=== PATIENT | male | born 1930 | race Caucasian/White ===

== ENCOUNTER 2016-09-08 21:10 | Inpatient (IN) | payer MEDICARE, BC ==
[~2016-09-08] VITALS: Ht 177.8 cm; Wt 67.3 kg
--- NOTE | 2016-09-08 21:20 | NUR ---
ADMITTED TO ROOM 1127 FROM [facility] ED. VIA AMBULANCE WITH 2 EMT'S. DX: INCREASED HALLUCINATIONS AND AGGRESION. 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 PRN MEDICATION OF ATIVAN 1 MG AND HALDOL 5 MG IM GIVEN AT [facility] ED. PRIOR TO ADMISSION. NO AGGRESSION TONIGHT DUE TO PRN MED. WILL CONTINUE TO MONITOR AND ASSESS FOR ANY CHANGES.
[2016-09-09 08:16] LABS: THYROID STIMULATING HORMONE 2.12 uIU/mL (0.36-3.74); VALPROIC ACID (DEPAKOTE) 41.5 ug/mL (50.0-100.0)
[2016-09-09 08:23] VITALS: BP 146/81
[2016-09-09] MEDS ORDERED: ULTRAM50 MG PO (08:56)
[2016-09-09] MEDS ORDERED: DEPAKOTE250 MG PO (09:08)
[2016-09-09] MEDS ORDERED: KLONOPIN0.5 MG PO (09:09)
[2016-09-09] MEDS ORDERED: XARELTO20 MG (09:09)
[2016-09-09] MEDS ORDERED: BAYER CHEWABLE81 MG (09:10)
[2016-09-09] MEDS ORDERED: FLOMAX0.4 MG PO (09:11)
[2016-09-09] MEDS ORDERED: MIRALAX17 GM PO (09:11)
[2016-09-09] MEDS ORDERED: PROSCAR5 MG PO (09:12)
[2016-09-09] MEDS ORDERED: BENICAR5 MG PO (09:13)
[2016-09-09] MEDS ORDERED: LIPITOR40 MG PO (09:14)
[2016-09-09] MEDS ORDERED: GLUCOSAMINE HC500 MG PO (09:15)
[2016-09-09] MEDS ORDERED: SINEMET 25-1001 EACH PO (09:18)
[2016-09-09 09:59] VITALS: BP 146/81
--- NOTE | 2016-09-09 14:00 | NUR ---
ALERT AND ORIENTED TO SELF ONLY, SITTING IN MICHELLE CHAIR, YELLING OUT AND TALKING TO SELF CONSTANTLY. TRASHES ABOUT IN MICHELLE CHAIR KICKING SOCKS OFF AND THROWING LEGS OVER SIDE OF CHAIR. NO EVIDENCE OF REORIENTATION. DOES THIS INTERMITTENTLY THROUGHOUT THE DAY. NO AGGRESSION. COMPLIANT WITH MEDICATIONS AND ENCOURAGEMENT OF FLUIDS. SAFETY MAINTAINED. CONTINUE PLAN OF CARE.
--- NOTE | 2016-09-09 14:26 | NUR ---
PT WAS GIVEN AN ATIVAN 0.5MG AT 1:45PM DUE TO HIM HOLLERING "OH GOD,OH GOD." HE IS RESTING IN A RECLINER CHAIR AND IS QUIET NOW. WILL CONTINUE TO MONITOR HIM.
--- NOTE | 2016-09-09 16:00 | NUR ---
PATIENT SPOUSE HERE VISITING, ACCOMPANIED PER FRIEND. ATTMEPTED TO EXPLAIN PLAN OF CARE TO HER, SHE THINKS PATIENT IS HERE BEING TREATED FOR HIS STROKE AND DOES NOT UNDERSTAND REASON FOR PATIENT HOSPITALIZATION. SHE IS TEARFUL AND REQUIRES CONSOLING PER HER FRIEND. FRIEND STATES THIS IS VERY HARD ON HER. EXPLAINED TREATMENT PLAN IS IN PROCESS AND SHE CAN CALL FOR UPDATES AND NEW INFORMATION. UNIT ORIENTATION HANDBOOK WAS GIVEN.
[2016-09-09 17:59] VITALS: BP 146/81; BMI 21.2
[2016-09-09 19:30] VITALS: BP 101/67
--- NOTE | 2016-09-09 22:00 | NUR ---
CALM AND COOPERATIVE WITH CARE AND ASSESSMENT. SEE ASSESSMENT FLOW SHEET FOR DETAILS. DIFFICULT TO REDIRECT AT TIMES. CONTINUE POC.
--- NOTE | 2016-09-10 06:48 | PSY ---
PATIENT NAME:STEPHEN MARTINEZ MEDICAL RECORD: [id number] : 31 LOCATION:JONNATHAN Briggs ADMISSION DATE: 09/08/16 ACCOUNT: [id number] PSYCHIATRIC EVALUATION DATE OF EVALUATION: 09/09/16 Initial Psychiatric Workup IDENTIFYING DATA: This is a first psychiatric admission for this 85-year-old white male. HISTORY OF PRESENT ILLNESS: This patient was accepted on transfer from [facility]. At home, the patient had been exhibiting increasing agitation and psychosis. He had been exhibiting delusional ideation as well as periods of yelling out and mild combativeness. 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 He has a preexisting diagnosis of Parkinson's disease as well as dementia. He had recently been started on medication for his Parkinson disease as well as Depakote 250 mg twice a day. Despite these measures, the patient has continued to worsen and he is therefore admitted for medication reevaluation and stabilization of his behavior. PAST MEDICAL HISTORY: Significant for Parkinson disease as mentioned above. Also, significant for recent CVA. The patient has a previous history of hyperlipidemia and benign prostate hypertrophy. ALLERGIES: None listed. FAMILY HISTORY: Noncontributory. SOCIAL HISTORY: The patient is . He lives at home with his . He has a son who is a physician. There are no substance abuse issues. REVIEW OF SYSTEMS: Noncontributory. MENTAL STATUS: On interview, the patient is extremely confused and somewhat agitated. Mood is slightly irritable. Affect is brittle. Speech is tangential and nonfocused. Flow of thought is indicative of moderate loosening of associations. Content of thought is positive for paranoid delusional ideation. On sensorium testing, the patient is oriented only to person. There is impairment in all phases of memory. DIAGNOSTIC IMPRESSION: AXIS I: Possible vascular dementia -- rule out Parkinson's related dementia. AXIS II: No diagnosis. AXIS III: Parkinson disease, ____ recent cerebrovascular accident, hyperlipidemia. AXIS IV: Moderate. AXIS V: 36. PLAN: 1. The patient is admitted for further workup from medical and psychiatric standpoint. 2. Diet and activities as tolerated. 3. Daily supportive therapy. 4. Coordinate with family regarding aftercare. TRANSINT:[id number] Voice Confirmation ID: [id number] DOCUMENT ID: [id number] TRIXIE NAVA III, MD at 0648 CC: [id number] DICTATION DATE: 09/09/16 1433 CORRUGATED FASTENER DRIVER: 09/09/16 1726 ADM IN [place] [id number] [place] [id number]
[2016-09-10 07:00] VITALS: BP 131/87
[2016-09-10 09:23] VITALS: BP 131/87
--- NOTE | 2016-09-10 18:05 | NUR ---
PT WAS RESTING IN THE RECLINER AT THE SUPPER TABLE WHEN HE BEGAN HOLERING "HELP, HELP." HE WAS GIVEN A tRAMADOL 50MG PO AT 5:50PM. HE WAS REPOSITIONED AND HE QUIT HOLLERING. HE NOW IS ASLEEP.
--- NOTE | 2016-09-10 18:13 | NUR ---
Patient in dayroom, yells out continuously. "Help, Help" when we go to assess him or ask him whats the matter, he just yells more. He tries to twist your arm when you try to assist him. He finally quieted down and when his came to visit he started yelling again. He was aggressive with his caregiver as well, twisting her hand. Patient unable to assess orientation. Continue to monitor.
[2016-09-10 19:30] VITALS: BP 126/91
--- NOTE | 2016-09-10 21:09 | NUR ---
RECEIVED IN DINING ROOM AREA. LAYING IN RECLINING CHAIR WITH EYES CLOSED. YELLING OUT. CALM AND COOPERATIVE WITH CARE AT THIS TIME. NO SIGNS OF AGGRESSION. ENCOURAGE TO EXPRESS NEEDS BUT NOT VOICING NEEDS AT THIS TIME. CONTINUE PLAN OF CARE
[2016-09-11 07:00] VITALS: BP 183/76
[2016-09-11 09:08] LABS: VITAMIN D 25 HYDROXY 22.7 ng/mL (30.0-100.0)
--- NOTE | 2016-09-11 09:09 | PN ---
PATIENT:STEPHEN MARTINEZ MEDICAL RECORD: [id number] LOCATION:PoppyELIEAlta CervantesShavon ADMISSION DATE: 09/08/16 PROGRESS NOTE DATE OF SERVICE: 09/10/2016 SUBJECTIVE: No new complaint. OBJECTIVE: The patient continues to have episodes of agitation. He is tolerating medications reasonably well up to this point. He remains confused and very distractible. On exam, mood is anxious, affect is shallow. Speech is tangential. Content of thought positive for recent hallucinations. Sensorium unchanged. ASSESSMENT: No change in diagnosis. PLAN: 1. Maintain current medication. 2. Continue supportive therapy. TRANSINT:[id number] Voice Confirmation ID: [id number] DOCUMENT ID: [id number] TRIXIE NAVA III, MD at 0909 CC: [id number] DICTATION DATE: 09/10/162019 MILIEU MANAGER: 09/10/162051 ADM IN [facility] [address] [place] [id number]
[2016-09-11 12:13] LABS: FOLATE (FOLIC ACID) - SERUM 8.7 ng/mL (>3.0)
--- NOTE | 2016-09-11 14:27 | NUR ---
Patient in [facility]. Unable to assess orientation. Patient given medication mixed some Ensure. He is not eating even with assist. Talked with son, Dr. Cuevas of the possibility of hospice care, as recommendation from the Doctor.
--- NOTE | 2016-09-11 19:52 | NUR ---
RECEIVED IN HALLWAY SITTING OUTSIDE OF NURSES STATION IN A RECLINING CHAIR. NOT YELLING OUT THIS EVENING. CALM AND COOPERATIVE WITH CARE AND ASSESSMENTS. NO SIGNS OF AGGRESSION. REDIRECT AND REORIENT NEEDED. CONTINUES TO SIT QUIETLY IN HALLWAY. CONTINUE PLAN OF CARE
[2016-09-11 20:02] VITALS: BP 119/77
[2016-09-12 03:09] LABS: RAPID PLASMA REAGIN Non Reactive (Non Reactive)
[2016-09-12 07:00] VITALS: BP 146/105
--- NOTE | 2016-09-12 11:01 | PN ---
PATIENT:STEPHEN MARTINEZ MEDICAL RECORD: [id number] LOCATION:JONNATHAN CervantesShavon ADMISSION DATE: 09/08/16 PROGRESS NOTE DATE OF SERVICE: 09/11/2016 SUBJECTIVE: No new complaint. OBJECTIVE: The patient is continuing to show virtually no oral intake. He is sedated some at this time, but very anxious when his visits. Additional history indicates that he was not receiving his Parkinson's medications on a regular basis at home. Family appears to be interested in placement. On exam, mood is euthymic. Affect very constricted. Speech is minimal. Content of thought is negative for overt psychosis at the moment. Sensorium shows no improvement. ASSESSMENT: No change in diagnosis. PLAN: 1. Maintain current medication. 2. Coordinate with family regarding aftercare plans. TRANSINT:[id number] Voice Confirmation ID: [id number] DOCUMENT ID: [id number] TRIXIE NAVA III, MD at 1101 CC: [id number] DICTATION DATE: 09/11/16 1035 WOOL SUPPLIER: 09/11/16 1157 ADM IN [facility] [address] [place] [address]
--- NOTE | 2016-09-12 12:49 | NUR ---
ORIENTED TO PERSON ONLY. PT IS NONVERBAL DURING ASSESSMENT BUT HE DID SPEAK OUT WITHOUT CONVERSATION FROM STAFF. PT APPEARS TO BE SEEING THINGS AEB HIM REACHING OUT TO UNSEEN THINGS. SPOUSE AND SON UPDATED ON PT'S CONDITION BY DR. NAVA AND THIS NURSE. CODE STATUS ADDRESSED AND PT HAS BEEN CHANGED TO DNR PER SON WHO IS HIS POA. FAMILY APPROVES HOSPICE EVALUATION. NO AGGRESSION NOTED. PT IS VERY LETHARGIC AND DOES NOT FOLLOW DIRECTION OR CONVERSATION. STAFF HAS ATTEMPTED MULTIPLE TIMES TO GET PT TO EAT BUT WITHOUT SUCCESS. PT HOLDS FOOD IN HIS MOUTH. SWALLOW EVALUATION HAS BEEN ORDERED. HEATHER MAT AND BARRIER CREAM ALONG WITH REPOSITIONING EVERY 2 HOURS IS BEING DONE TO REDUCE RISK OF BREAKDOWN. FALL PRECAUTIONS MAINTAINED. WILL CONTINUE TO MONITOR AND CONTINUE WITH PLAN OF CARE.
[2016-09-12 19:30] VITALS: BP 143/90
--- NOTE | 2016-09-12 22:29 | NUR ---
RECEIVED IN HALLWAY OUTSIDE OF NURSES STATION. SITTING IN RECLINER WITH EYES OPEN. CALM AND COOPERATIVE WITH CARE AND ASSESSMENTS. NO SIGNS OF AGGRESSION. REDIRECT AND REORIENT NEEDED. RESTING IN BED EYES CLOSED AT THIS TIME. CONTINUE PLAN OF CARE
[2016-09-13 09:06] VITALS: BP 150/99
--- NOTE | 2016-09-13 10:23 | NUR ---
B) Rec'd pt in dining room for b'fast, alert, confused, oriented to self only, able to take meds crushed with pudding. I) Meds admin as ordered, group therapy provided with little participation due to cognitive deficit. R) Med compliant, chayo well with no s/s adverse reaction. P) Cont plan of care including medications and group therapy.
--- NOTE | 2016-09-13 10:37 | PN ---
PATIENT:STEPHEN MARTINEZ MEDICAL RECORD: [id number] LOCATION:JONNATHAN Cervantes112 ADMISSION DATE: 09/08/16 PROGRESS NOTE DATE OF SERVICE: 09/12/2016 SUBJECTIVE: No new complaint. OBJECTIVE: The patient continues to show poor responsiveness. He has not had any significant oral intake over the last 24 hours and remains sedated. Accordingly, Klonopin and Depakote have been discontinued; however, the patient has not actually had any oral medication for about [address] El attempted to test the patient, but he could not respond. We will be getting a speech evaluation regarding his poor swallowing. Conversation was held via telephone with the patient's son, Dr. Jason Martinez. He noted that in the 7 weeks that his father was home following a stroke that he had exhibited extreme sensitivity to any sedating medications. He stated for example that when Mr. Martinez was given 1 mg of Klonopin that he became somnolent for about 18 hours. He also exhibited a similar sensitivity to the benzodiazepines. This of course is comparable to the sedation that has been noted in the hospital. The patient had been ordered Klonopin 0.5 b.i.d. as well as his Depakote, but again these have not been actually administered for about a day and a half. The issue of hospice involvement was discussed with his son and he is going to look into this. Likewise, the son gave with an authorization to have the patient on a no code status. On exam, the patient is very poorly responsive. Speech is minimal. Content of thought cannot be assessed. Likewise sensorium is globally impaired. ASSESSMENT: No change in diagnosis. PLAN: 1. Medication changes as described above. Also, we will add Vistaril 25 mg up to every 8 hours on a p.r.n. basis should the patient became agitated again, p.r.n. Haldol and Ativan will also be discontinued. 2. We will get hospitalist evaluation. 3. Speech therapy evaluation. 4. The patient will be placed on a no code status per son's instruction. TRANSINT:[id number] Voice Confirmation ID: [id number] DOCUMENT ID: [id number] PROGRESS NOTE [id number] STEPHEN MARTINEZ BRANDY LOVE, TRIXIE Cline MD at 1037 CC: [id number] DICTATION DATE: 09/12/16 1211 RECORD LABEL INTERNSHIP: 09/12/16 2253 ADM IN [facility] [address] [facility]
[2016-09-13 19:30] VITALS: BP 138/89
--- NOTE | 2016-09-14 01:34 | NUR ---
B) Recieved patient in the day room , sleeping in gerichair , arrouses to name, I) monitored for falls and safety no medications this shift, NPO till next swallow study R) resting quietly in bed, P) Continue plan of care.
--- NOTE | 2016-09-14 09:22 | NUR ---
B) PATIENT IS CONFUSED ORIENTED TO SELF, KNOWS HE IS NOT HOME. SHAHRAM FROM SPEECH THERAPY IS SUPPOSED TO BE HERE IN A WHILE TO REASSESS PATIENTS SWALLOW CAPABILITY. PATIENT REMAINS NPO AND HIS LIPS ARE DRY, APPLYING GLYCERIN SWAB TO MOUTH AND LIPS, ICE CUBES TO LIPS. I) PROVIDE PRESCRIBED MEDS. R) PATIENT IS CALLING FOR STAFF TO CALL HIS . PATIENT IS COMPLIANT WITH MEDS. P) CONTINUE PLAN OF CARE.
[2016-09-14 09:28] VITALS: BP 143/93
--- NOTE | 2016-09-14 10:27 | PN ---
PATIENT:STEPHEN MARTINEZ MEDICAL RECORD: [id number] LOCATION:JONNATHAN BillyShavon ADMISSION DATE: 09/08/16 PROGRESS NOTE DATE OF SERVICE: 09/13/2016 SUBJECTIVE: No new complaint. OBJECTIVE: The patient continues to show very poor oral intake. He essentially has not had food or liquids over the last 24 hours. However, he is more alert. He speaks but his speech is nonsensical. He has undergone a swallowing evaluation and it is noted that he has severe dysphagia consistent with his Parkinson disease and dementia. He has a significant aspiration risk. Swallow evaluation raised the possibility of using a PEG tube. On exam, mood is euthymic. Affect very constricted. Speech is nonsensical. Content of thought appears to be focused only on somatic concerns. Sensorium shows no change. ASSESSMENT: No change in diagnosis. PLAN: 1. We will defer to primary care regarding nutritional status. 2. Psychotropic medications have been discontinued. 3. Continue supportive care. TRANSINT:[id number] Voice Confirmation ID: [id number] DOCUMENT ID: [id number] TRIXIE NAVA III, MD at 1027 CC: [id number] DICTATION DATE: 09/13/16 1113 COUNTY ADMINISTRATOR: 09/13/16 1653 ADM IN [place] [id number] [place] [address]
[2016-09-14 19:54] VITALS: BP 123/85
--- NOTE | 2016-09-15 06:31 | NUR ---
RECEIVED IN DINING ROOM SITTING IN RECLINER WITH EYES CLOSED. ALERT TO SELF ONLY. REMAINS QUIET AT THIS TIME. CALM AND COOPERATIVE WITH CARE AND ASSESSMENT. MEDICATION COMPLIANT. FALL PRECAUTIONS MAINTAINED. CONT POC.
--- NOTE | 2016-09-15 07:15 | NUR ---
PATIENT FOUND ON FLOOR, CHECKED BODY, RANGE OF MOTION WNL.
--- NOTE | 2016-09-15 07:35 | NUR ---
CONTACTED HOUSE SUPERVISER ON PATIENT BEING FOUND ON FLOOR, NO INJUSRIES, NO REDNESS.
--- NOTE | 2016-09-15 07:42 | NUR ---
CONTACTED DR. MARTINEZ PATIENT'S SON, LET HIM BE AWARE THAT HIS DAD WAS FOUND ON THE FLOOR, EXPLAINED THAT WE ARE NOT SURE IF HE FELL OR SLID DOWN. BODY ASSESSMENT WITH NO FINDINGS OF ANY INJURIES, ROM WNL. DR. MARTINEZ REPLIED WITH UNDERSTANDING.
[2016-09-15 09:47] VITALS: BP 152/83
[2016-09-15 13:51] VITALS: BMI 21.2
[2016-09-15 19:30] VITALS: BP 91/76
--- NOTE | 2016-09-15 19:35 | NUR ---
RAPID RESPONSE CALLED ON PATIENT BP WAS 73/38, AND NOT RESPONDING, MANUAL BP TAKEN AND NOT ABLE TO GET, STERNAL RUB PROVIDED AND NO RESPONSE. RR TEAM, APPLIED 4L/M O2 PER N/C, FAMILY NOTIFIED, DR. HERRERA NOTIFIED. BP NOW 91/67, RR TEAM RECOMMEND REVIEW HOSPICE CONSULT, CONTINUE OXYGEN AND FREQUENT OBSERVATION.
--- NOTE | 2016-09-16 03:08 | NUR ---
B) Recieved patient in the day room, MHT unable to get B/P rapid responce called, I) Patient transfered to his room, patient arroused , family and physician called, orders for IV obtained for NS at 100, R) medication compliant, fluids pushed, IV started, patient sat. improved, p) Continue plan of care.
--- NOTE | 2016-09-16 08:30 | NUR ---
B) PATIENT IS MORE ALERT AND AWAKE, HE DID BITE HIS IV TUBING IN TWO PIECES, HANGED ANOTHER BAG AND CURRENTLY IT IS INFUSING. PATIENTS O2 SAT IS 97% ON R/A HE IS TALKING, NONSENSICAL BUT HE IS TALKING AND RESPONSIVE. I) PROVIDE PRESCRIBED MEDS. R) PATIENT IS COMPLIANT WITH MEDS AND HE IS ASKING FOR WATER AND JUICE AND DRINKING WELL. P) CONTINUE POC.
[2016-09-16 11:50] VITALS: BP 137/87
--- NOTE | 2016-09-16 11:56 | PN ---
PATIENT:STEPHEN MARTINEZ MEDICAL RECORD: [id number] LOCATION:JONNATHAN CervantesShavon ADMISSION DATE: 09/08/16 PROGRESS NOTE DATE OF SERVICE: 09/15/2016 SUBJECTIVE: The patient's case was discussed with staff. He has no new complaint. OBJECTIVE: The patient is in good behavioral control, but not eating very well. He has very limited insight about his situation. ASSESSMENT: No change in diagnosis. PLAN: Current medicines and therapies have been reviewed and will be maintained. Brief supportive and educational interventions were made. The patient will be started on Megace to assist with appetite stimulation. TRANSINT:[id number] Voice Confirmation ID: [id number] DOCUMENT ID: [id number] EMY FOURNIER MD at 1156 CC: [id number] DICTATION DATE: 09/15/16 1425 EXTENSION PROFESSOR: 09/15/16 2342 ADM IN [place] [id number] [place] [id number]
--- NOTE | 2016-09-16 12:15 | NUR ---
PATIENT PULLED HIS IV OUT, HE DID RECEIVE HIS 100 ML IV NS, HE IS DRINKING AND EATING WELL.
--- NOTE | 2016-09-16 15:20 | NUR ---
RESTARTED PT IV TO TO RIGHT FOREARM AT THIS TIME, 22G ONE ATTEMPT. FLUSHED WITH 10CC OF NS AND SECURED WITH OP-SITE AND TAPE. IV FLUIDS RESTARTED. WILL CONTINUE TO MONITOR.
--- NOTE | 2016-09-16 16:40 | NUR ---
PATIENTS IS HERE AND SHE IS CRYING AND SHE IS DISTRAUGHT. SHE ASKED ME AND THE MHT ABOUT THE PATIENTS SEVERITY AND HOW FAST HE HAS GONE [place]. SHE DOES NOT UNDERSTAND. SHE WAS BEGGING HIM TO PLEASE REMEMBER HER.
--- NOTE | 2016-09-16 18:13 | NUR ---
PATIENT HAS A YELLOW METAL BAND (RING) THAT CAME OFF OF HIS FINGER. THE E.D. WAS CALLED TO COME P/U TO LOCK UP IN SAFE. THEY ARE SUPPOSED TO BE COMING SHORTLY.
[2016-09-16 19:30] VITALS: BP 91/55
--- NOTE | 2016-09-16 23:44 | NUR ---
B) Recieved patient in the day room, alert and oriented to self, confused and talking at times, patient is much improved from 24 hours ago, I) Administered perscribed medication, monitored IV site, monitored for falls and safety, R) Medication compliant, IV site patent, P) Continue plan of care, continue to monitor.
[2016-09-17 07:00] VITALS: BP 143/78
[2016-09-17 13:39] VITALS: Ht 177.8 cm; Wt 67.3 kg
--- NOTE | 2016-09-17 13:39 | NUR ---
PT IS VERY LETHARGIC BUT DOES AWAKEN WITH STIMULI. PT RFUSES TO OPEN HIS EYES BUT DOES ATTEMPT TO PUSH STAFF AWAY WHEN STAFF ATTEMPTS TO WAKEN PT. PT ATE ONLY BITES DURING LUNCH AND REFUSED ANY AT BREAKFAST. WILL CONTINUE TO ATTEMPT TO GET PT TO EAT OR DRINK. IV RUNNING AT 100 ML/HR. IV LOCATED ON RIGHT WRIST. MEDICATIONS GIVEN ORDERED. FALL PRECAUTIONS MAINTAINED. CLAIR IN PLACE. WILL CONTINUE TO MONITOR AND CONTINUE WITH PLAN OF CARE. PT IN BED SO TURNING PT EVERY 2 HOURS AND BRACING PT WITH PILLOWS TO PREVENT BREAKDOWN. UPDATED SON AND SPOUSE ON PT'S CONDITION AND TX PLAN. VERBALIZED UNDERSTANDING. SON THANKED STAFF FOR THE CARE GIVEN TO HIS FATHER.
[2016-09-17 17:52] VITALS: BP 155/85
[2016-09-17 17:59] VITALS: BP 149/86
--- NOTE | 2016-09-17 18:19 | NUR ---
I ATTEMPTED TO FEED THE PT, THE LEFT SIDE OF HIS FACE BEGAN TO SLIGHTLY DROOP. CONE CHOCOLATE DIPPER CALLED, DR. HERRERA AND FAMILY NOTIFIED. RAPID RESPONSE CALLED. 1751: VS-O2 SAT-91%, BP-155/85, HR-83. RETOOK VS AT 1758: O2 SAT-94%, BP-149/86, HR-80. PT'S SON CALLED BACK AND WAS TOLD THAT THE PT HAD BEEN TAKEN FOR A CT AND EXPLAINED PT'S BEHAVIOR AND SYMPTOMS. SON STATED HE WAS FINE WITH THIS BUT BEFORE ANYTHING ELSE WAS DONE HE WANTED TO BE CALLED BACK WITH RESULTS OF CT. HE THEN STATED THAT THE PT HAS DONE THIS BEFORE AND CLEARED UP.
--- NOTE | 2016-09-17 18:20 | NUR ---
TRANSPORTED TO CT VIA BED FOR AR SAVES PROTOCOL. ER NOTIFIED PRIOR TO TRANSPORT.
[2016-09-17 19:03] LABS: BASOPHILS 0 % (0-2); EOSINOPHILS 0.6 % (0-7); HEMOGLOBIN 14.1 g/dL (13.5-17.5); IMMATURE GRANULOCYTES 0.2 % (0-5); LYMPHOCYTES 16.9 % (15-50); MCH 30.8 pg (26.0-34.0); MCHC 31.3 g/dL (31.0-37.0); MCV 98.3 fL (80.0-100.0); MEAN PLATELET VOLUME 12.1 fL (7.4-10.4); MONOCYTES 6.1 % (2-11); NEUTROPHILS 76.2 % (40-80); PLATELET COUNT 183 10x3/uL (130-400); RBC 4.58 10x6/uL (4.20-6.10); WBC 10.8 10x3/uL (4.8-10.8)
[2016-09-17 19:12] LABS: APTT 29.5 SECONDS (22.8-39.4); INR 1.33 (0.85-1.17); PROTIME 16.4 SECONDS (11.6-15.0)
[2016-09-17 19:29] LABS: ALBUMIN 2.8 g/dL (3.4-5.0); ALKALINE PHOSPHATASE 104 U/L (46-116); ALT (SGPT) 19 U/L (10-68); CALC OSMOLALITY 305 mosm/kg (275-300); CARBON DIOXIDE 23.9 mmol/L (21.0-32.0); GLUCOSE 94 mg/dL (74-106); POTASSIUM - SERUM 3.6 mmol/L (3.5-5.1); PROTEIN - SERUM 6.6 g/dL (6.4-8.2); SODIUM 151 mmol/L (136-145); UREA NITROGEN 30 mg/dL (7-18); eGFR NON AFRICAN AMERICAN 76 mL/min (90-120)
[2016-09-17 19:30] VITALS: BP 148/76
[2016-09-17 19:33] LABS: CHLORIDE - SERUM 119 mmol/L (98-107)
--- NOTE | 2016-09-17 20:37 | NUR ---
RECEIVED FROM ED IN BED. RESTLESS. REPOSITIONED FOR COMFORT. CRITICAL CHLORIDE OF 119 CALLED FROM LAB. DOCTOR JAVIER CALLED. ORDER TO CONTINUE NACL AT 100 ML/HR. ENCOURAGE TO EXPRESS NEEDS. CONTINUE TO MONITOR RESTING IN BED EYES CLOSED. PATIENTS SON NOTIFIED OF PATIENTS STATUS. CONTINUE PLAN OF CARE
[2016-09-18 07:00] VITALS: BP 147/88
--- NOTE | 2016-09-18 10:36 | PN ---
PATIENT:STEPHEN MARTINEZ MEDICAL RECORD: [id number] LOCATION:PoppyELIEAlta CervantesShavon ADMISSION DATE: 09/08/16 PROGRESS NOTE DATE OF SERVICE: 09/14/2016 SUBJECTIVE: No new complaint. OBJECTIVE: The patient is somewhat clearer. He attempts to converse with staff from time to time. He is now requesting water. A repeat swallowing evaluation will be done. On exam, mood is anxious. Affect remains very shallow. Speech is still tangential. Content of thought is negative for overt psychosis at the moment. Sensorium shows no change. ASSESSMENT: No change in diagnosis. PLAN: 1. Maintain current medication. 2. Continue supportive therapy. TRANSINT:[id number] Voice Confirmation ID: [id number] DOCUMENT ID: [id number] TRIXIE NAVA III, MD at 1036 CC: [id number] DICTATION DATE: 09/14/16 1104 REFRACTORY REPAIRER: 09/14/16 2107 ADM IN [place] [id number] [place] [address]
--- NOTE | 2016-09-18 10:53 | NUR ---
SPOKE WITH DR. FUNEZ ABOUT UROLOGY CONSULT ORDER FROM DR. HERRERA. 14 PORTUGUESE COUDE PLACEMENT ORDERED.
--- NOTE | 2016-09-18 12:38 | NUR ---
16 WING MCCARTY PUT IN BY DR. FUNEZ. LUL PATENT.
--- NOTE | 2016-09-18 13:32 | NUR ---
PT IS NONVERBAL AT THIS TIME BUT DOES LOOK AT STAFF WHEN NAME IS CALLED. PT IS REACHING INTO THE AIR AT UNSEEN OBJECTS. MCCARTY AND IV ARE WORKING PROPERLY. BUTTOCKS IS RED. PT IS REPOSITIONED EVERY 2 HOURS AND BARRIER CREAM APPLIED. SON AND SPOUSE HAVE BEEN UPDATED ON PT'S CONDITION. FALL PRECAUTIONS MAINTAINED. CLAIR IN PLACE. WILL CONTINUE TO MONITOR AND CONTINUE WITH CARE.
--- NOTE | 2016-09-18 14:10 | PN ---
PATIENT:STEPHEN MARTINEZ MEDICAL RECORD: [id number] LOCATION:JONNATHAN Cervantes112 ADMISSION DATE: 09/08/16 PROGRESS NOTE DATE OF SERVICE: 09/16/2016 SUBJECTIVE: The patient's case was discussed with staff. He has no new complaint. OBJECTIVE: The patient is in good behavioral control with limited insight about his condition. He tolerates his medicines well. ASSESSMENT: No change in diagnoses. PLAN: Current medicines and therapies have been reviewed and will be maintained. Long-term prognosis is guarded. TRANSINT:[id number] Voice Confirmation ID: [id number] DOCUMENT ID: [id number] EMY FOURNIER MD at 1410 CC: [id number] DICTATION DATE: 09/16/16 1239 MARINE ANIMAL TRAINER: 09/16/162125 ADM IN [facility] [address] [place] [address]
--- NOTE | 2016-09-18 15:20 | NUR ---
pt has been accepted to [facility]. report called to RN. chirinos to transport. discharge paperwork done and faxed to facility. pt is a dnr and dnr order sent with [facility]. iv discontinued per hospice. all belongings sent with pt. pt's son aware of discharge today.
--- NOTE | 2016-09-18 15:47 | NUR ---
pt's ring [facility]
[2016-09-18] MEDS ORDERED: MEGACE40 MG PO (15:56)
[2016-09-18] MEDS ORDERED: BENICAR5 MG PO (15:56)
--- NOTE | 2016-09-19 10:32 | PN ---
PATIENT:STEPHEN MARTINEZ MEDICAL RECORD: [id number] LOCATION:JONNATHAN Bob ADMISSION DATE: 09/08/16 PROGRESS NOTE DATE OF SERVICE: 09/18/2016 SUBJECTIVE: No new complaint. OBJECTIVE: The patient remains somewhat drowsy. He is having great difficulty in swallowing. Staff reports that the patient appeared to have a TIA yesterday. He has had exhibited left facial droop. He was evaluated by the ER physician. The patient had a Valladares catheter inserted today due to poor urine output. Staff is in touch with the patient's son regarding possible hospice placement. On exam, mood is euthymic. Affect very constricted. Speech minimal. Content of thought is unchanged. Sensorium unchanged. ASSESSMENT: No change in diagnosis. PLAN: 1. We will continue supportive measures. 2. Continue working on placement options. TRANSINT:[id number] Voice Confirmation ID: [id number] DOCUMENT ID: [id number] TRIXIE NAVA III, MD at 1032 CC: [id number] DICTATION DATE: 09/18/16 1204 DIGITAL SALES REPRESENTATIVE: 09/18/16 2318 DIS IN 09/18/16 [facility] [address] [place] [address]
--- NOTE | 2016-09-20 10:41 | DS ---
PATIENT:STEPHEN MARTINEZ :32 MEDICAL RECORD: [id number] DISCHARGE SUMMARY ADMISSION DATE: 09/08/16 DISCHARGE DATE: 09/18/16 DATE OF ADMISSION: 09/08/2016 DATE OF DISCHARGE: 09/18/2016 HISTORY: This was the first psychiatric contact for this 85-year-old white male. He had been transferred from [facility] Emergency Department. He had been exhibiting increasing agitation and psychosis. The patient had a previous history of cerebrovascular accident in July of this year, also had a preexisting diagnosis of Parkinson disease with associated dementia. Because of worsening agitation and psychosis, the patient was admitted. For further details, please see previously dictated history. COURSE IN THE HOSPITAL: The patient was seen in consultation by Dr. Alcantara. Dr. Alcantara did note the presence of the dementia as well as hyperlipidemia, hypertension, benign prostatic hyperplasia and Parkinson disease. The patient was initially treated with low dose neuroleptic medication because of the agitation, but this was discontinued. The patient was maintained on Sinemet for control of his parkinsonian symptoms. He was also maintained on Proscar, Benicar, Megace for appetite stimulation and Flomax. The patient had a difficult course during the hospitalization. He continued to respond rather slowly. Oral intake was of particular concern as the patient had difficulty swallowing and apparent decreased appetite as well. Close contact was maintained with the patient's family. Eventually it was determined that the patient would be better served by being placed in a hospice. Accordingly, arrangements were made for transfer to hospice program at the time of discharge. FINAL DIAGNOSES: AXIS I: Vascular dementia. AXIS II: No diagnosis. AXIS III: Parkinson disease, hypertension, recent cerebrovascular accident, benign prostatic hyperplasia and hyperlipidemia. AXIS IV: Severe. AXIS V: 30. PLAN: The patient is transferred to hospice care. TRANSINT:[id number] Voice Confirmation ID: [id number] DOCUMENT ID: [id number] TRIXIE NAVA III, MD at 1041 CC: [id number] DICTATION DATE: 09/19/16 1150 CHAINER: 09/20/16 [id number] DIS IN 09/18/16 [place] [address]
== END 2016-09-18 16:49 | disposition home health service (06) | DRG 57 ==
LOC: D.PSYCH 21:10
PROVIDERS: Family Medicine; ADMIT Psychiatry & Neurology Psychiatry
PROC: 0T9B70Z Drainage of Bladder with Drainage Device, Via Natural or Artificial Opening (ICD-10-PCS; principal; 2016-09-18)
DX: G20 Parkinson's disease (principal); F02.81 Dementia in other diseases classified elsewhere, unspecified severity, with behavioral disturbance; F01.51 Vascular dementia, unspecified severity, with behavioral disturbance; I69.919 Unspecified symptoms and signs involving cognitive functions following unspecified cerebrovascular disease; R13.12 Dysphagia, oropharyngeal phase; Z74.01 Bed confinement status; Z66 Do not resuscitate; N47.1 Phimosis; K59.00 Constipation, unspecified; I10 Essential (primary) hypertension; E78.5 Hyperlipidemia, unspecified; N40.1 Benign prostatic hyperplasia with lower urinary tract symptoms; R33.8 Other retention of urine

== ENCOUNTER 2016-09-17 18:47 | Emergency (ER) | payer MEDICARE, BC ==
[2016-09-17 13:39] VITALS: BMI 21.2
[~2016-09-17 18:47] MED LIST: BAYER CHEWABLE81 MG; BENICAR5 MG PO; DEPAKOTE250 MG PO; FLOMAX0.4 MG PO; GLUCOSAMINE HC500 MG PO; KLONOPIN0.5 MG PO; LIPITOR40 MG PO; MIRALAX17 GM PO; PROSCAR5 MG PO; SINEMET 25-1001 EACH PO; ULTRAM50 MG PO; XARELTO20 MG
[2016-09-18] MEDS ORDERED: MEGACE40 MG PO (15:56)
[2016-09-18] MEDS ORDERED: BENICAR5 MG PO (15:56)
== END 2016-09-17 19:50 | disposition other institution (70) ==
LOC: D.ER 18:47
DX: G45.9 Transient cerebral ischemic attack, unspecified (principal); J44.9 Chronic obstructive pulmonary disease, unspecified; G30.9 Alzheimer's disease, unspecified; F02.80 Dementia in other diseases classified elsewhere, unspecified severity, without behavioral disturbance, psychotic disturbance, mood disturbance, and anxiety; G20 Parkinson's disease